=== PATIENT | male | born 1985 | race Two or more races ===

== ENCOUNTER 2025-03-11 11:14 | Inpatient (IN) | payer MEDICAID, OTHER ==
[~2025-03-11] VITALS: Ht 157.5 cm; Wt 109.8 kg
--- NOTE | 2025-03-11 11:42 | ED.PDOC ---
HPI (NEURO) HPI Comments This is a 39 year old male presenting to the ED with chief complaint of eye pain/facial numbness. Patient reports that he has been experiencing left sided eye pain for the past 3-4 days, however, this morning at around 6am he started to experience associated left facial numbness and left eye blurred vision. Patient relays that the pain is concentrated to the edges of his eyes. Patient states he has been under some recent stress. Patient denies any fall, injury, headache, N/V, dizziness, syncope, or photophobia. Chief Complaint: Face pain Time Seen by MD: 11:40 Reviewed Notes: Nurses Notes, Medications, Allergies Information Source: Patient Mode of Arrival: Ambulatory Severity: Moderate Timing: Days Duration: Since onset Prehospital treatment: None Numbness Location: Facial Onset: At rest Circumstances: Recent stress History of: None Associated Signs and Symptoms: Blurred Vision Past Medical History PAST MEDICAL HISTORY: Denies Surgical History: Denies all surgeries Family History Family History: Reviewed,noncontributory to illness Social History Smoker: Non-Smoker Alcohol: Denies ETOH Use Drugs: Denies Drug Use Lives In: Home Constitutional: denies: chills, diaphoresis, fatigue, fever, malaise, sweats, weakness, others EENTM: reports: blurred vision, eye pain; denies: double vision, ear bleeding, ear discharge, ear drainage, ear pain, ear ringing, eye redness, hearing loss, mouth pain, mouth swelling, nasal discharge, nose bleeding, nose congestion, nose pain, photophobia, tearing, throat pain, throat swelling, voice changes, others Respiratory: denies: cough, hemoptysis, orthopnea, SOB at rest, shortness of b reath, SOB with excertion, stridor, wheezing, others Cardiovascular: denies: chest pain, dizzy spells, diaphoresis, Dyspnea on exertion, edema, irregular heart beat, left arm pain, lightheadedness, palpitations, PND, syncope, others Gastrointestinal: denies: abdomen distended, abdominal pain, blood streaked bowels, constipated, diarrhea, dysphagia, difficulty swallowing, hematemesis, melena, nausea, poor appetite, poor fluid intake, rectal bleeding, rectal pain, vomiting, others Genitourinary: denies: burning, dysuria, flank pain, frequency, hematuria, incontinence, penile discharge, penile sore, pain, testicle pain, testicle swelling, urgency, others Neurological: reports: numbness; denies: dizziness, fainting, headache, left sided numbness, left sided weakness, paresthesia, pre-existing deficit, right sided numbness, right sided weakness, seizure, speech problems, tingling, tremors, weakness, others Musculoskeletal: denies: back pain, gout, joint pain, joint swelling, muscle pain, muscle stiffness, neck pain, others Integumetry: denies: bruises, change in color, change in hair/nails, dryness, laceration, lesions, lumps, rash, wounds, others Allergic/Immunocompromised: denies: Difficulty Healing, Frequent Infections, Hives, Itching, others Hematologic/Lymphatic: denies: anemia, blood clots, easy bleeding, easy bruisi ng, swollen glands, others Endocrine: denies: excessive hunger, excessive sweating, excessive thirst, exce ssive urination, flushing, intolerance to cold, intolerance to heat, unexplained weight gain, unexplained weight loss, others Psychiatric: denies: anxiety, bipolar disorder, depression, hopeless, panic disorder, schizophrenia, sleepless, suicidal, others All Other Systems: Reviewed and Negative Physical Exam General Appearance: No Apparent Distress, Normal HEENT: Normal ENT Inspection, Pharynx Normal, TMs Normal Neck: Full Range of Motion, Non-Tender, Normal, Normal Inspection Respiratory: Chest Non-Tender, Lungs Clear, No Accessory Muscle Use, No Respiratory Distress, Normal Breath Sounds Cardiovascular: No Edema, No JVD, No Murmur, No Gallop, Normal Peripheral Pulses, Regular Rate/Rhythm Breast Exam: Deferred Gastrointestinal: No Organomegaly, Non Tender, No Pulsatile Mass, Normal Bowel Sounds, Soft Genitalia: Deferred Pelvic: Deferred Rectal: Deferred Extremities: No calf tenderness, Normal capillary refill, Normal inspection, Normal range of motion, Non-tender, No pedal edema Musculoskeletal : Apperance: Normal Neurologic: Alert, cylinder inspector and tester II-XII nml as Tested, No Motor Deficits, Normal Affect, Normal Mood, No Sensory Deficits Cerebellar Function: Normal Reflexes: Normal Skin: Dry, Normal Color, Warm Lymphatic: No Adenopathy Was a procedure done? Was a procedure done?: No Differential Diagnosis (SZ) Seizure: N/A CVA: CVA, Electrolyte Imbalance, Encephalopathy, SAH, TIA General Weakness: Anemia, Dehydration, Dysrhythmia, Hypotension, Repiratory failure Headache: Migraine, Post Lumber Puncture, Sinusitis X-Ray, Labs, Meds, VS Vital Signs Date Time Temp Pulse Resp B/P (MAP) Pulse Ox O2 Delivery O2 Flow Rate FiO2 03/11/25 11:19 98.6 95 16 133/92 98 98.6 Lab Test 03/11/25 14:44 03/11/25 12:41 03/11/25 11:51 Range/Units Troponin I High Sensitivity 19 18 18 </=54 ng/L White Blood Count 12.3 H 4.4-10.8 10^3/uL Red Blood Count 5.26 4.5-5.90 10^6/uL Hemoglobin 15.8 13.5-17.5 g/dL Hematocrit 45.6 41.0-53.0 % Mean Corpuscular Volume 86.8 80.0-100.0 fL Mean Corpuscular Hemoglobin 30.0 28.0-32.0 pg Mean Corpuscular Hemoglobin Concent 34.6 32.0-36.0 g/dL Red Cell Distribution Width 13.6 11.8-14.3 % Platelet Count 316 140-450 10^3/uL Mean Platelet Volume 8.2 6.9-10.8 fL Neutrophils (%) (Auto) 57.1 37.0-80.0 % Lymphocytes (%) (Auto) 35.1 10.0-50.0 % Monocytes (%) (Auto) 5.8 0.0-12.0 % Eosinophils (%) (Auto) 1.3 0.0-7.0 % Basophils (%) (Auto) 0.7 0.0-2.0 % Neutrophils # (Auto) 7.0 1.6-8.6 10 ^3/uL Lymphocytes # (Auto) 4.3 0.4-5.4 10 ^3/uL Monocytes # (Auto) 0.7 0-1.3 10 ^3/uL Eosinophils # (Auto) 0.2 0-0.8 10 ^3/uL Basophils # (Auto) 0.1 0-0.2 10 ^3/uL Nucleated Red Blood Cells 0.0 % Sodium Level 138 136-145 mmol/L Potassium Level 4.2 3.5-5.1 mmol/L Chloride Level 103 98-107 mmol/L Carbon Dioxide Level 26 20-31 mmol/L Anion Gap 9 5-15 Blood Urea Nitrogen 13 9-23 mg/dL Creatinine 0.83 0.700-1.30 mg/dL Glomerular Filtration Rate Calc 115 >90 mL/min BUN/Creatinine Ratio 15.7 10.0-20.0 Serum Glucose 88 74-106 mg/dL Calcium Level 10.3 8.7-10.4 mg/dL [place] [id number] Ph: [phone] DIAGNOSTIC IMAGING Diagnostic Imaging Report : [id number] Signed PATIENT: MAGGIE LOPEZ NACCT: [id number] UNIT: [id number] : 1985 LOC: ER ROOM / BED: / AGE / SEX: 39 / M ADM STATUS: REG ER SERVICE 1138 ORDERING PHYSICIAN: SARITA MCKAY MD PROCEDURE(s): HWOCT - HEAD WITHOUT CONTRAST REASON: left face numbness ORDER NUMBER(s): [id number], ACCESSION NUMBER(s): [id number] EXAM: CT HEAD WITHOUT CONTRAST INDICATION: left face numbness TECHNIQUE: CT images of the head were obtained without administration of IV contrast. CT scans at this facility use dose modulation, iterative reconstruction, and/or weight based dosing when appropriate to reduce radiation dose to as low as reasonably achievable. COMPARISON: None FINDINGS: PARENCHYMA: No acute hemorrhage. There is no mass effect, midline shift, or herniation. There is preservation of the gay white differentiation. VENTRICLES: No hydrocephalus. EXTRA-AXIAL SPACES: No extra-axial fluid collections. OTHER: The bony structures are intact. Visualized portions of the paranasal sinuses and mastoid air cells are clear. IMPRESSION: 1. No CT evidence of an acute intracranial abnormality. ATED BY: ED ARREDONDO MD DICTATED DATE/TIME: 03/11/251242 SIGNED BY: ED ARREDONDO MD SIGNED DATE/TIME: 03/11/251242 CC: Images Reviewed?: Images reviewed and evaluated by me Time of 1ST Reevaluation: 12:39 Reevaluation 1ST: Unchanged Patient Education/Counseling: Diagnosis, Treatment Family Education/Counseling: No Family Present Departure 1 Departure Time of Disposition: 06:44 (Patient with right facial numbness concerning for possible CVA. Labs are benign. CT brain is benign.) Impression: Primary Impression: Left facial numbness Additional Impression: Suspected cerebrovascular accident (CVA) Disposition: ADMITTED INPATIENT Admit to: Tele Condition: Guarded e-Prescriptions Gabapentin (Gabapentin) 100 Mg Cap 1 CAP PO TID, #90 CAP 2 Refills Prov: SUSANNA MOSES [facility] 03/12/25 Critical Care Note Critical Care Time?: Yes Critical care comment: Suspected CVA Authorized and Performed by: Sarita Mckay MD Total critical care time: Approximately 37 minutes Due to a high probability of clinically significant, life threatening deterioration, the patient required my highest level of preparedness to intervene emergently and I personally spent this critical care time directly and personally managing the patient. This critical care time included obtaining a history; examining the patient; pulse oximetry; ordering and review of studies; arranging urgent treatment with development of a management plan; evaluation of patient's response to treatment; frequent reassessment; and, discussions with other providers. This critical care time was performed to assess and manage the high probability of imminent, life-threatening deterioration that could result in multi-organ failure. It was exclusive of separately billable procedures and treating other patients and teaching time. Please see my other sections and the rest of the note for further information on patient assessment and treatment. Stability Stability form required: No Heart Score Heart Score: Heart Score Response (Comments) Value History N/A 0 EKG N/A 0 Age N/A 0 Risk Factors N/A 0 Troponin N/A 0 Total 0 I personally scribed for SARITA MCKAY MD ([email or web address]) on 03/11/25 at 11:42. Electronically submitted by Melo Gomez ([email or web address]). I personally scribed for SARITA MCKAY MD ([email or web address]) on 03/11/25 at 13:01. Electronically submitted by Melo Gomez ([email or web address]). SARITA MCKAY MD Mar 11, 2025 11:42
[2025-03-11 12:17] LABS: Hematocrit 45.6 % (41.0-53.0); Hemoglobin 15.8 g/dL (13.5-17.5); Mean Corpuscular Hemoglobin 30.0 pg (28.0-32.0); Mean Corpuscular Volume 86.8 fL (80.0-100.0); Nucleated Red Blood Cells % 0.0 %
[2025-03-11 12:32] LABS: Anion Gap 9 (5-15); Carbon Dioxide 26 mmol/L (20-31); Chloride 103 mmol/L (98-107); Potassium 4.2 mmol/L (3.5-5.1); Sodium 138 mmol/L (136-145)
[2025-03-11 12:33] LABS: Calcium 10.3 mg/dL (8.7-10.4)
[2025-03-11 12:38] LABS: BUN/Creatinine Ratio 15.7 (10.0-20.0); Blood Urea Nitrogen 13 mg/dL (9-23); Glucose 88 mg/dL (74-106)
--- NOTE | 2025-03-11 12:46 | DVH ---
EXAM: CT HEAD WITHOUT CONTRAST INDICATION: left face numbness TECHNIQUE: CT images of the head were obtained without administration of IV contrast. CT scans at this facility use dose modulation, iterative reconstruction, and/or weight based dosing when appropriate to reduce radiation dose to as low as reasonably achievable. COMPARISON: None FINDINGS: PARENCHYMA: No acute hemorrhage. There is no mass effect, midline shift, or herniation. There is preservation of the gay white differentiation. VENTRICLES: No hydrocephalus. EXTRA-AXIAL SPACES: No extra-axial fluid collections. OTHER: The bony structures are intact. Visualized portions of the paranasal sinuses and mastoid air cells are clear. IMPRESSION: 1. No CT evidence of an acute intracranial abnormality.
[2025-03-11] MEDS ORDERED: DOCUSATE SOD 100 MG CAP PO PRN (16:30)
[2025-03-11] MEDS ORDERED: NITROGLYCERIN 0.4 MG SL TAB SL PRN (16:30)
[2025-03-11] MEDS ORDERED: MORPHINE SULFATE INJ 2 MG/ml SYRG IV PRN ×2 (16:30)
[2025-03-11] MEDS ORDERED: ONDANSETRON HCL 4 MG/2 ML VIAL IV PRN (16:30)
--- NOTE | 2025-03-11 16:31 | DVHHP2 ---
Admitting Diagnosis: eye pain facial numbness History of Present Illness 9 year old male presenting to the ED with chief complaint of eye pain/facial numbness. Patient reports that he has been experiencing left sided eye pain for the past 3-4 days, however, this morning at around 6am he started to experience associated left facial numbness and left eye blurred vision. Patient relays that the pain is concentrated to the edges of his eyes. Patient states he has been under some recent stress. Patient denies any fall, injury, headache, N/V, dizziness, syncope, or photophobia. While in the emergency department the patient was evaluated by the provider, As per provider: Labs, vital signs, and imagining monitored. Patient will be admitted for further evaluation and treatment. I discussed admission with the patient/family and is in agreement to treatment plan. Allergies: Coded Allergies: No Known Drug Allergy (Verified Allergy, Unknown, 03/11/25) Current Medications Current Medications Medications (Trade) Dose Ordered Sig/April Route PRN Reason Start Time Stop Time Status Last Admin Acetaminophen/ Hydrocodone Bitart ([place] 5/325MG Tab) 1 tab Q4HP PRN PO MODERATE PAIN (4-6 PAIN SCALE) 03/11/25 16:30 Temazepam (Restoril) 15 mg QHSP PRN PO FOR INSOMNIA 03/11/25 16:30 Ondansetron HCl (Zofran) 4 mg Q4HP PRN IV NAUSEA / VOMITING 03/11/25 16:30 Docusate Sodium (Colace Capsule) 100 mg BIDPRN PRN PO FOR CONSTIPATION 03/11/25 16:30 Acetaminophen (Tylenol Tablet) 650 mg Q6HP PRN PO PAIN SCALE 1-3 OR TEMP>100.4 03/11/25 16:30 Morphine Sulfate 2 mg Q4HPRN PRN IV SEVERE PAIN (7-10 PAIN SCALE) 03/11/25 16:30 Nitroglycerin (Ntrostat Sublingual) 0.4 mg Q5MINP PRN SL FOR CHEST PAIN 03/11/25 16:30 Morphine Sulfate 2 mg Q30M PRN IV FOR CHEST PAIN 03/11/25 16:30 Clonidine HCl (Catapres Tablet) 0.1 mg Q8HP PRN PO SBP>150 03/11/25 16:30 Pantoprazole Sodium (Protonix Tablet) 40 mg DAILY PO 03/12/25 10:00 Review of Systems Constitutional: denies chills, denies fever, denies malaise Eyes: denies eye pain, denies vision change ENT: denies ear pain, denies headache, denies nasal congestion, denies painful swallowing, denies voice change Cardiovascular: denies chest pain, denies edema, denies orthopnea, denies palpitations, denies paroxysmal nocturnal dyspnea Respiratory: denies cough, denies shortness of breath Gastrointestinal: denies constipation, denies diarrhea, denies nausea, denies vomiting Genitourinary: denies dysuria, denies frequent urination, denies urethral discharge Musculoskeletal: denies back pain, denies joint pain, denies muscle pain Skin: denies bruising, denies itching, denies rash Neurological: denies focal weakness, denies headache, denies sensory changes Psychiatric: denies anxiety, denies depression Endocrine: denies polydipsia, denies polyuria Hematologic/Lymphatic: denies easy bleeding, denies easy bruising, denies e nlarged lymph nodes Allergic/Immunologic: denies allergy, denies hives Vital Signs Vital Signs Date Time Temp Pulse Resp B/P (MAP) Pulse Ox O2 Delivery O2 Flow Rate FiO2 03/11/25 19:47 98 Room Air* 0 21 03/11/25 19:45 99 18 127/93 (104) 03/11/25 16:28 97.7 97.7 Physical Exam General Appearance: alert, no distress HEENT: EOMI, PERRLA, normal external inspect of ears, no icterus, no nasal drainage Neck: no carotid bruit, no jugular venous distention (JVD), no lymphadenopathy Chest: normal thorax Respiratory: clear to auscultation, normal air movement Cardiovascular: regular rate and rhythm, no diastolic murmur, no jugular venous distention (JVD), no rub, no systolic murmur Abdominal: soft, no hepatomegaly, no mass, no splenomegaly, no tenderness Genitourinary: grossly normal external Musculoskeletal: no joint tenderness, no swelling Extremities: normal pulses, no calf tenderness, no clubbing, no cyanosis, no edema Skin: no bruising, no jaundice, no rash Neurological: alert, No focal deficit SEPSIS Sepsis Screen Date sepsis recognized/suspect: Mar 11, 2025 Time Sepsis recognized/suspect: 1118 Recent Procedure: No On Antibiotic Therapy: No Respiratory Rate >20: No Heart Rate >90: Yes Temp<36 C (96.8 F) or >38.3 C: No SBP <90 or MAP <65 mmHG: No New Acute Mental Status Change: No Is the patient on CPAP, BIPAP,: No Physician Orders Head Without Contrast (03/11/25 11:38) Electrocardigram (03/11/25 11:38) Electrocardigram (03/11/25 12:38) Electrocardigram (03/11/25 14:38) * Neurology Consult (03/11/25 15:02) Admit (03/11/25 16:20) Code Status (03/11/25 16:20) Hydrocodone-Acet 5/325mg Tab ([place] 5/32 (03/11/25 16:30) Temazepam (Restoril) (03/11/25 16:30) Ondansetron Hcl (Zofran) (03/11/25 16:30) Docusate Sodium Capsule (Colace Capsule) (03/11/25 16:30) Complete Blood Count (03/12/25 04:00) Comprehensive Metabolic Panel (03/12/25 04:00) Cardiac Diet-2gna,Lofat,Lochol (03/11/25 Dinner) Condition: Stable (03/11/25 16:20) Acetaminophen Tablet (Tylenol Tablet) (03/11/25 16:30) Morphine Sulfate Injection (03/11/25 16:30) *Consult Dr. Jagdish Taveras (03/11/25 16:20) Brain Head Wo Contrast (03/11/25 16:20) Nitroglycerin Sublingual (Ntrostat Subli (03/11/25 16:30) Morphine Sulfate Injection (03/11/25 16:30) Stat Ekg For Chest Pain (03/11/25 16:20) Notify Md Of Changes From Base (03/11/25 16:20) Net Ui Developer For 24 Hours (03/11/25 16:20) Emergency Dysrhythmia Protocol (03/11/25 16:20) Rhythm Strips Once Every Shift (03/11/25 16:20) Oxygen By Nasal Cannula (03/11/25 16:20) Clonidine Hcl Tablet (Catapres Tablet) (03/11/25 16:30) Pantoprazole Tablet (Protonix Tablet) (03/12/25 10:00) Sequential Compression Device (03/11/25 16:28) Mri Orbits W Out Contrast (03/11/25 16:20) Vital Signs Date Time Temp Pulse Resp B/P (MAP) Pulse Ox O2 Delivery O2 Flow Rate FiO2 03/11/25 19:47 98 Room Air* 0 21 03/11/25 19:45 99 18 127/93 (104) 97 03/11/25 16:33 98 18 98 Room Air* 0 21 03/11/25 16:28 97.7 98 18 126/83 (97) 97 97.7 03/11/25 11:19 98.6 95 16 133/92 98 98.6 Laboratory Tests Test 03/11/25 11:51 White Blood Count 12.3 10^3/uL (4.4-10.8) H Medications Medications Dose Ordered Sig/April Route Start Time Stop Time Status Last Admin Dose Admin Acetaminophen 650 mg ONCE ONCE PO 03/11/25 15:15 03/11/25 15:16 DC 03/11/25 16:45 Results Labs Test 03/11/25 14:44 03/11/25 11:51 Range/Units Troponin I High Sensitivity 19 </=54 ng/L White Blood Count 12.3 H 4.4-10.8 10^3/uL Red Blood Count 5.26 4.5-5.90 10^6/uL Hemoglobin 15.8 13.5-17.5 g/dL Hematocrit 45.6 41.0-53.0 % Mean Corpuscular Volume 86.8 80.0-100.0 fL Mean Corpuscular Hemoglobin 30.0 28.0-32.0 pg Mean Corpuscular Hemoglobin Concent 34.6 32.0-36.0 g/dL Red Cell Distribution Width 13.6 11.8-14.3 % Platelet Count 316 140-450 10^3/uL Mean Platelet Volume 8.2 6.9-10.8 fL Neutrophils (%) (Auto) 57.1 37.0-80.0 % Lymphocytes (%) (Auto) 35.1 10.0-50.0 % Monocytes (%) (Auto) 5.8 0.0-12.0 % Eosinophils (%) (Auto) 1.3 0.0-7.0 % Basophils (%) (Auto) 0.7 0.0-2.0 % Neutrophils # (Auto) 7.0 1.6-8.6 10 ^3/uL Lymphocytes # (Auto) 4.3 0.4-5.4 10 ^3/uL Monocytes # (Auto) 0.7 0-1.3 10 ^3/uL Eosinophils # (Auto) 0.2 0-0.8 10 ^3/uL Basophils # (Auto) 0.1 0-0.2 10 ^3/uL Nucleated Red Blood Cells 0.0 % Sodium Level 138 136-145 mmol/L Potassium Level 4.2 3.5-5.1 mmol/L Chloride Level 103 98-107 mmol/L Carbon Dioxide Level 26 20-31 mmol/L Anion Gap 9 5-15 Blood Urea Nitrogen 13 9-23 mg/dL Creatinine 0.83 0.700-1.30 mg/dL Glomerular Filtration Rate Calc 115 >90 mL/min BUN/Creatinine Ratio 15.7 10.0-20.0 Serum Glucose 88 74-106 mg/dL Calcium Level 10.3 8.7-10.4 mg/dL Plan 1. Left eye pain Monitor, MRI orbits, MRI brain, neurology consult 2. Facial parenthesia Monitor, neurology consult, MRI brain 3. Morbid obesity Monitor 4. Benign essential hypertension Monitor, as needed antihypertensives 5. Migraine Neurology consult, MRI brain, monitor Plan discussed with: Patient, Other CATRACHOMARTINA Raine JACOBSON Mar 11, 2025 16:31
[2025-03-11 16:33] VITALS: PULSE 98; RESP 18; O2SAT 98
[2025-03-11] MEDS: ACETAMINOPHEN 325 MG TAB PO ONE (16:45)
--- NOTE | 2025-03-11 17:45 | DVH ---
EXAM: MRI MRI ORBITS W OUT CONTRAST, MRI BRAIN HEAD WO CONTRAST INDICATION: EYE PAIN TECHNIQUE: Multiplanar, multisequence imaging of the brain with and without contrast. MRI of the orbits with and without contrast was also performed. No postcontrast imaging was performed despite with and without order secondary to patient intolerance. COMPARISON: CT HEAD WITHOUT CONTRAST on DOS: 03/11/25 FINDINGS: Limited evaluation secondary to truncated examination given patient intolerance. [PARENCHYMA]: No acute infarct or hemorrhage. No mass effect or herniation. No abnormal susceptibility weighted artifact. [VENTRICLES]: No hydrocephalus. [EXTRA-AXIAL SPACES]: No extra-axial fluid collections. [FLOW VOIDS]: The flow voids are intact. [EXTRA-CRANIAL STRUCTURES]: The bony structures are intact. Visualized portions of the paranasal sinuses and mastoid air cells are essentially clear. Symmetric appearance of the visualized portions of the optic nerves, roots, rectus muscles. Normal appearance of the optic chiasm. Visualized portions of Meckel's joint space loss, cavernous sizes cysts, cerebellopontine angles and internal auditory canals are within normal limits. IMPRESSION: 1. No MR evidence of an acute intracranial abnormality. no MR evidence of acute infarction. 2. Symmetric appearance of the orbits allowing for limitation. No postcontrast imaging was performed secondary to patient intolerance. 3. Mastoid air cells are clear. 4. Visualized portions of internal auditory canals, Meckel's caves, trigeminal nerve origins appear to be symmetric and within normal limits.
--- NOTE | 2025-03-11 17:45 | DVH ---
EXAM: MRI MRI ORBITS W OUT CONTRAST, MRI BRAIN HEAD WO CONTRAST INDICATION: EYE PAIN TECHNIQUE: Multiplanar, multisequence imaging of the brain with and without contrast. MRI of the orbits with and without contrast was also performed. No postcontrast imaging was performed despite with and without order secondary to patient intolerance. COMPARISON: MRI MRI ORBITS W OUT CONTRAST on DOS: 03/11/25 FINDINGS: Limited evaluation secondary to truncated examination given patient intolerance. [PARENCHYMA]: No acute infarct or hemorrhage. No mass effect or herniation. No abnormal susceptibility weighted artifact. [VENTRICLES]: No hydrocephalus. [EXTRA-AXIAL SPACES]: No extra-axial fluid collections. [FLOW VOIDS]: The flow voids are intact. [EXTRA-CRANIAL STRUCTURES]: The bony structures are intact. Visualized portions of the paranasal sinuses and mastoid air cells are essentially clear. Symmetric appearance of the visualized portions of the optic nerves, roots, rectus muscles. Normal appearance of the optic chiasm. Visualized portions of Meckel's joint space loss, cavernous sizes cysts, cerebellopontine angles and internal auditory canals are within normal limits. IMPRESSION: 1. No MR evidence of an acute intracranial abnormality. no MR evidence of acute infarction. 2. Symmetric appearance of the orbits allowing for limitation. No postcontrast imaging was performed secondary to patient intolerance. 3. Mastoid air cells are clear. 4. Visualized portions of internal auditory canals, Meckel's caves, trigeminal nerve origins appear to be symmetric and within normal limits.
[2025-03-11 22:41] VITALS: PULSE 72; RESP 17
[2025-03-11] MEDS ORDERED: METF-370 PO (23:08)
[2025-03-11] MEDS ORDERED: LISI20TA56 PO (23:08)
[2025-03-11] MEDS ORDERED: CHOL20007 PO (23:08)
[2025-03-11] MEDS ORDERED: ATOR20TA50 PO (23:08)
[2025-03-11] MEDS: TEMAZEPAM 15 MG CAP PO PRN (23:34)
[2025-03-11] MEDS: ACETAMINOPHEN 325 MG TAB PO PRN (23:59)
[2025-03-12 00:19] VITALS: BP 112/76; PULSE 77; RESP 17; TEMP 98; O2SAT 95
[2025-03-12 01:00] VITALS: BP 108/69; PULSE 72; RESP 17; TEMP 97.4; O2SAT 94
[2025-03-12 05:00] VITALS: BP 106/72; PULSE 92; RESP 17; TEMP 97.5; O2SAT 98
[2025-03-12 07:48] LABS: Hematocrit 42.6 % (41.0-53.0); Hemoglobin 14.8 g/dL (13.5-17.5); Mean Corpuscular Hemoglobin 30.3 pg (28.0-32.0); Mean Corpuscular Volume 87.0 fL (80.0-100.0); Nucleated Red Blood Cells % 0.0 %
[2025-03-12 08:00] VITALS: PULSE 68
[2025-03-12 08:08] LABS: Albumin 4.4 g/dL (3.2-4.8); Alkaline Phosphatase 81 U/L (46-116); Anion Gap 11 (5-15); BUN/Creatinine Ratio 13.8 (10.0-20.0); Blood Urea Nitrogen 13 mg/dL (9-23); Calcium 9.1 mg/dL (8.7-10.4); Carbon Dioxide 26 mmol/L (20-31); Chloride 102 mmol/L (98-107); Glucose 105 mg/dL (74-106); Potassium 3.7 mmol/L (3.5-5.1); Sodium 139 mmol/L (136-145); Total Protein 7.4 g/dL (5.7-8.2)
[2025-03-12 08:09] LABS: Alanine Aminotransferase 48 U/L (7-40); Bilirubin, Total 0.7 mg/dL (0.2-1.0)
[2025-03-12] MEDS: PANTOPRAZOLE 40 MG TAB PO SCH (08:36)
[2025-03-12 09:13] VITALS: BP 110/110; PULSE 73; RESP 18; TEMP 98.6; O2SAT 93
[2025-03-12] MEDS: HYDROcodone-ACET 5/325MG TAB PO PRN (10:48)
[2025-03-12] MEDS ORDERED: GABA-1308 PO (11:20)
--- NOTE | 2025-03-12 11:20 | DVHDS2 ---
Discharge Summary Date of Admission Mar 11, 2025 at 16:20 Date of Discharge: Mar 12, 2025 Labs/Diagnostic Data: Laboratory Results Test 03/12/25 06:25 03/11/25 14:44 White Blood Count 10.7 10^3/uL (4.4-10.8) Red Blood Count 4.90 10^6/uL (4.5-5.90) Hemoglobin 14.8 g/dL (13.5-17.5) Hematocrit 42.6 % (41.0-53.0) Mean Corpuscular Volume 87.0 fL (80.0-100.0) Mean Corpuscular Hemoglobin 30.3 pg (28.0-32.0) Mean Corpuscular Hemoglobin Concent 34.9 g/dL (32.0-36.0) Red Cell Distribution Width 13.3 % (11.8-14.3) Platelet Count 277 10^3/uL (140-450) Mean Platelet Volume 8.4 fL (6.9-10.8) Neutrophils (%) (Auto) 55.5 % (37.0-80.0) Lymphocytes (%) (Auto) 34.3 % (10.0-50.0) Monocytes (%) (Auto) 7.5 % (0.0-12.0) Eosinophils (%) (Auto) 2.0 % (0.0-7.0) Basophils (%) (Auto) 0.7 % (0.0-2.0) Neutrophils # (Auto) 5.9 10 ^3/uL (1.6-8.6) Lymphocytes # (Auto) 3.7 10 ^3/uL (0.4-5.4) Monocytes # (Auto) 0.8 10 ^3/uL (0-1.3) Eosinophils # (Auto) 0.2 10 ^3/uL (0-0.8) Basophils # (Auto) 0.1 10 ^3/uL (0-0.2) Nucleated Red Blood Cells 0.0 % Sodium Level 139 mmol/L (136-145) Potassium Level 3.7 mmol/L (3.5-5.1) Chloride Level 102 mmol/L (98-107) Carbon Dioxide Level 26 mmol/L (20-31) Anion Gap 11 (5-15) Blood Urea Nitrogen 13 mg/dL (9-23) Creatinine 0.94 mg/dL (0.700-1.30) Glomerular Filtration Rate Calc 106 mL/min (>90) BUN/Creatinine Ratio 13.8 (10.0-20.0) Serum Glucose 105 mg/dL (74-106) Calcium Level 9.1 mg/dL (8.7-10.4) Total Bilirubin 0.7 mg/dL (0.2-1.0) Aspartate Amino Transferase (AST) 27 U/L (13-40) Alanine Aminotransferase (ALT) 48 U/L (7-40) Alkaline Phosphatase 81 U/L (46-116) Total Protein 7.4 g/dL (5.7-8.2) Albumin 4.4 g/dL (3.2-4.8) Troponin I High Sensitivity 19 ng/L (</=54) Other Laboratory Tests 03/12/25 06:25 Final Diagnosis/Problems List 1. Left eye pain Monitor, MRI orbits, MRI brain, neurology consult 2. Facial parenthesia Monitor, neurology consult, MRI brain 3. Morbid obesity Monitor 4. Benign essential hypertension Monitor, as needed antihypertensives 5. Migraine Discharge Disposition: Home Discharge Instruct/Medications Diet: Cardiac 2g Na,low cholest Activity: No Restrictions, As Tolerated Follow Up/Referral: fup with pcp within 1 week and opthamology within 1 week Scheduled Atorvastatin Calcium (Atorvastatin Calcium), 1 TAB PO DAILY, (Reported) Cholecalciferol (Vitamin D3), 1 TAB PO DAILY, (Reported) Gabapentin (Gabapentin), 1 CAP PO TID Lisinopril (Lisinopril), 1 TAB PO DAILY, (Reported) Metformin Hydrochloride (Metformin Hcl), 1 TAB PO BID, (Reported) Discharge Statement: "Patient was advised to return to the ER or call 911 if any headaches, dizziness, shortness of breath, chest pain, abdominal pain, bleeding, fevers, or worsening of medical condition. Patient was counseled about treatment plan, medications, possible side effects, patientverbalized understanding. All questions were answered to the best of my ability. This discharge took greater then 30 minutes in planning, reviewing documentation, counseling the patient, and discussing with other team members." ASSESSMENT ASSESSMENT Assessment 1. Left eye pain Monitor, MRI orbits, MRI brain, neurology consult 2. Facial parenthesia Monitor, neurology consult, MRI brain 3. Morbid obesity Monitor 4. Benign essential hypertension Monitor, as needed antihypertensives 5. Migraine SUSANNA MOSES [employer] Mar 12, 2025 11:20
[2025-03-12 12:29] VITALS: BP 110/78; PULSE 73; RESP 18; TEMP 98.6; O2SAT 93
--- NOTE | 2025-03-12 16:47 | DVHDS2 ---
Discharge Summary Date of Admission Mar 11, 2025 at 16:20 Date of Discharge: Mar 12, 2025 Admitting Diagnosis eye pain Labs/Diagnostic Data: Laboratory Results Test 03/12/25 06:25 03/11/25 14:44 White Blood Count 10.7 10^3/uL (4.4-10.8) Red Blood Count 4.90 10^6/uL (4.5-5.90) Hemoglobin 14.8 g/dL (13.5-17.5) Hematocrit 42.6 % (41.0-53.0) Mean Corpuscular Volume 87.0 fL (80.0-100.0) Mean Corpuscular Hemoglobin 30.3 pg (28.0-32.0) Mean Corpuscular Hemoglobin Concent 34.9 g/dL (32.0-36.0) Red Cell Distribution Width 13.3 % (11.8-14.3) Platelet Count 277 10^3/uL (140-450) Mean Platelet Volume 8.4 fL (6.9-10.8) Neutrophils (%) (Auto) 55.5 % (37.0-80.0) Lymphocytes (%) (Auto) 34.3 % (10.0-50.0) Monocytes (%) (Auto) 7.5 % (0.0-12.0) Eosinophils (%) (Auto) 2.0 % (0.0-7.0) Basophils (%) (Auto) 0.7 % (0.0-2.0) Neutrophils # (Auto) 5.9 10 ^3/uL (1.6-8.6) Lymphocytes # (Auto) 3.7 10 ^3/uL (0.4-5.4) Monocytes # (Auto) 0.8 10 ^3/uL (0-1.3) Eosinophils # (Auto) 0.2 10 ^3/uL (0-0.8) Basophils # (Auto) 0.1 10 ^3/uL (0-0.2) Nucleated Red Blood Cells 0.0 % Sodium Level 139 mmol/L (136-145) Potassium Level 3.7 mmol/L (3.5-5.1) Chloride Level 102 mmol/L (98-107) Carbon Dioxide Level 26 mmol/L (20-31) Anion Gap 11 (5-15) Blood Urea Nitrogen 13 mg/dL (9-23) Creatinine 0.94 mg/dL (0.700-1.30) Glomerular Filtration Rate Calc 106 mL/min (>90) BUN/Creatinine Ratio 13.8 (10.0-20.0) Serum Glucose 105 mg/dL (74-106) Calcium Level 9.1 mg/dL (8.7-10.4) Total Bilirubin 0.7 mg/dL (0.2-1.0) Aspartate Amino Transferase (AST) 27 U/L (13-40) Alanine Aminotransferase (ALT) 48 U/L (7-40) Alkaline Phosphatase 81 U/L (46-116) Total Protein 7.4 g/dL (5.7-8.2) Albumin 4.4 g/dL (3.2-4.8) Troponin I High Sensitivity 19 ng/L (</=54) Other Laboratory Tests 03/12/25 06:25 Brief Hx & Hospital Course: The patient is a 39-year-old male who presented with complaints of left eye pain and paresthesia. MRI of the brain and MRI of the orbits were performed, both of which were negative for any acute abnormalities. The etiology of the patients eye pain remains unclear but may be related to migraines. The patient is already under the care of ophthalmology and was advised to continue follow-up as scheduled. He was also advised to follow up with his primary care provider for further evaluation and coordination of care, including a possible referral back to ophthalmology if symptoms persist. The patient was discharged home in stable condition, with instructions to return to the emergency department if symptoms worsen or new neurological or visual changes develop. Condition at Discharge: Fair Final Diagnosis/Problems List 1. Left eye pain Monitor, MRI orbits, MRI brain, neurology consult 2. Facial parenthesia Monitor, neurology consult, MRI brain 3. Morbid obesity Monitor 4. Benign essential hypertension Monitor, as needed antihypertensives 5. Migraine Discharge Disposition: Home Discharge Instruct/Medications Diet: Cardiac 2g Na,low cholest Activity: No Restrictions, As Tolerated Follow Up/Referral: fup with pcp within 1 week and opthamology within 1 week Scheduled Atorvastatin Calcium (Atorvastatin Calcium), 1 TAB PO DAILY, (Reported) Cholecalciferol (Vitamin D3), 1 TAB PO DAILY, (Reported) Gabapentin (Gabapentin), 1 CAP PO TID Lisinopril (Lisinopril), 1 TAB PO DAILY, (Reported) Metformin Hydrochloride (Metformin Hcl), 1 TAB PO BID, (Reported) Discharge Statement: "Patient was advised to return to the ER or call 911 if any headaches, dizziness, shortness of breath, chest pain, abdominal pain, bleeding, fevers, or worsening of medical condition. Patient was counseled about treatment plan, medications, possible side effects, patientverbalized understanding. All questions were answered to the best of my ability. This discharge took greater then 30 minutes in planning, reviewing documentation, counseling the patient, and discussing with other team members." ASSESSMENT ASSESSMENT Assessment 1. Left eye pain Monitor, MRI orbits, MRI brain, neurology consult 2. Facial parenthesia Monitor, neurology consult, MRI brain 3. Morbid obesity Monitor 4. Benign essential hypertension Monitor, as needed antihypertensives 5. Migraine SUSANNA MOSES [employer] Mar 12, 2025 16:47
== END 2025-03-12 13:10 | disposition home or self-care (01) | DRG 82 ==
LOC: ER 11:14 → OVERFLOW 16:20 → TELE-WESTW 21:52
PROVIDERS: ADMIT Nurse Practitioner; ATTEND Nurse Practitioner
DX: H57.12 Ocular pain, left eye (principal); E66.01 Morbid (severe) obesity due to excess calories; I10 Essential (primary) hypertension; G43.909 Migraine, unspecified, not intractable, without status migrainosus; Z68.41 Body mass index [BMI] 40.0-44.9, adult; Z79.899 Other long term (current) drug therapy
CPT/HCPCS: 36415; 70450; 70540; 70551; 80048; 80053; 84484; 85025; G0378